=== PATIENT | female | born 2000 | race Caucasian/White ===

== ENCOUNTER 2023-07-01 19:01 | Emergency (ER) | payer OTHER, SELFPAY ==
[2023-07-01 19:04] VITALS: BP 134/88
--- NOTE | 2023-07-01 21:26 | ED.GENMED ---
History of Present Illness
General
Chief Complaint: Nose Bleed
Source: patient
Exam Limitations: none
Time Seen by Provider: 07/01/23 20:40
Travel History
Have you had any contact with someone who has COVID-19?: No
Do you have any symptoms of coronavirus? Fever > 100 degrees, chills, cough, shortness of breath, sore throat, loss of taste or smell, muscle aches, or headache?: No
History of Present Illness
History of Present Illness:
22-year-old female nosebleed right nares earlier today. Stopped spontaneously. Also has had some intermittent palpitations in the last few months. No current palpitations. No chest pain shortness of breath.
Past History
Past History
ED Past Medical History: None
ED Past Surgical History: None
Social History
Tobacco: Non-smoker
Alcohol: None
Review of Systems
Review of Systems
All Other Systems: Not applicable
Phy Exam
Physical Exam
Physical Exam:
General: Nontoxic appearing in no distress
Skin: Warm and dry, no rash
Neuro: Alert, nontoxic, grossly nonfocal
Psychiatric: Good eye contact and appropriate
ENT:. Small previous bleeding spot right inferior anterior nares. No active bleeding. Left nares clear. Throat clear.
Cardiac: Regular rate and rhythm
Lungs: No respiratory distress
Course
Orders/Labs/Results
Orders:
Orders
07/01/23 21:12
EKG [Electrocardiogram (*1)] Urgent
Reason for Study: Palpitations
EKG- Treatment ONCE
Vital Signs
Initial and Last Documented VS:
Initial Vital Signs
Temp Pulse Resp BP Pulse Ox
98.1 F 95 18 134/88 100
07/01/23 19:04 07/01/23 19:04 07/01/23 19:04 07/01/23 19:04 07/01/23 19:04
Last Documented Vital Signs
Temp Pulse Resp BP Pulse Ox
98.1 F 97 18 134/87 100
07/01/23 19:04 07/01/23 21:39 07/01/23 19:04 07/01/23 21:39 07/01/23 19:04
*Pulse Oximetry
Patient hypoxic: no
*EKG
Interpreted by ED Provider?: Yes
Heart Rate: 89
Rate: normal
Rhythm: sinus
Hulbert: normal axis
Interval: normal interval
QRS Pattern: normal QRS
Ischemia: no ischemia
*Critical Care Note
Total Time (30-74mins, 75-104mins- exclusive of procedures): Not Applicable
Update Note
Update Note:
Patient medically stable. No further nosebleed. Discussed cautery . Patient would like to hold off which is reasonable. As for the palpitations, patient's father requested an EKG. Very low suspicion for serious cardiac rhythm issue. EKG
normal. Stressed close follow-up
ED Attending Note
-
Portions of this chart may have been created with voice recognition software.� Occasional wrong word or��sound alike� substitutions may have occurred due to the inherent limitations of voice recognition software.
Discharge Plan
Departure
Patient Disposition: Home (Routine Discharge)
Date of Disposition: 07/01/23
Time of Disposition: 21:27
Patient with high blood pressure during this ER visit?: Yes
Discharge Problem:
Epistaxis, palpitations
Instructions: Nosebleeds (DC), Palpitations (DC), BLOOD PRESSURE
Referrals:
Marisabel Whitten DO [Family Provider] - Follow up in 2-3 days
Activity Restrictions/Additional Instructions:
As discussed follow-up with your primary physician concerning palpitations. As discussed they can arrange an outpatient Holter monitor
Interventions
Interventions:
*Risk Screen - Suicide Last Done: 07/01/23 20:23
*General Assessment Last Done: 07/01/23 20:23
*Neglect/Abuse Screening Last Done: 07/01/23 20:23
*ED COVID-19 Vaccine History Last Done: 07/01/23 20:23
*Nursing Disposition Last Done: 07/01/23 21:39
ED-EENT Assessment Last Done: 07/01/23 20:22
Discharge Date and Time
Discharge Date/Time: 07/01/23 21:39
[2023-07-01 21:37] VITALS: BP 134/87
[2023-07-01 21:39] VITALS: BP 134/87
== END 2023-07-01 21:39 | disposition home or self-care (01) ==
LOC: EMR 19:01
PROVIDERS: EMERGENCY PHYSICIAN Emergency Medicine; FAMILY PHYSICIAN Family Medicine
DX: R04.0 Epistaxis (principal)
CPT/HCPCS: 99283; 93005